=== PATIENT | female | born 1985 | race Two or more races ===

== ENCOUNTER 2019-08-01 07:51 | Outpatient (CLI) | payer OTHER | END 2019-08-01 07:58 | disposition home or self-care (01) | LOC: SONOGRAMA 07:51 | DX: E04.1 Nontoxic single thyroid nodule (principal) ==

== ENCOUNTER → 2020-07-09 | Outpatient (CLI) | payer OTHER | END | disposition home or self-care (01) | LOC: SONOGRAMA 14:33 | DX: E04.1 Nontoxic single thyroid nodule (principal) ==